=== PATIENT | male | born 1945 | race Caucasian/White ===

== ENCOUNTER → 2017-08-21 10:36 | Outpatient (CLI) | payer MEDICARE, OTHER, SELFPAY ==
--- NOTE | 2017-08-21 | DI.RAD.S_ITS ---
PROCEDURE: XR ELBOW LT MIN 3V INDICATIONS: LEFT ELBOW PAIN TECHNIQUE: 3 views of the elbow were acquired. COMPARISON: None. FINDINGS: Bones: No fractures or dislocations. No suspicious bony lesions. Soft tissues: No elbow joint effusion. No suspicious soft tissue calcifications. IMPRESSION: No trauma to the elbow is found. Mild olecranon fossa degenerative osteoarthritic change. Dictated by: Marc Richards M.D. on 08/21/2017 at 17:35 Approved by: Marc Richards M.D. on 08/21/2017 at 17:35
== END ==
PROVIDERS: Visit Provider Internal Medicine
DX: M19.022 Primary osteoarthritis, left elbow (principal); M25.522 Pain in left elbow
CPT/HCPCS: 73080